=== PATIENT | female | born 1975 | race Caucasian/White ===

== ENCOUNTER 2021-09-08 16:31 | Emergency (ER) | payer OTHER, SELFPAY ==
[2021-09-08 16:37] VITALS: BP 140/93; PULSE 105; RESP 16; TEMP 37; O2SAT 97
--- NOTE | 2021-09-08 17:08 | ED.URI ---
HPI - URI/Sore Throat General Chief Complaint: Upper Respiratory Infection Stated Complaint: sore throat drainage Time Seen by Provider: 09/08/21 16:40 Source: patient Mode of arrival: ambulatory Limitations: no limitations History of Present Illness HPI Narrative: Ms. Bryant is a 46-year-old female patient presenting to the clinic today with complaints of sore throat, low-grade temp, headache, and nasal congestion with nasal drainage. She reports that this has been going on for 3 days. She has had positive exposure to strep MD elicited complaint: sore throat and nasal congestion Related Data Home Medications Medication Instructions Recorded Confirmed amitriptyline 50 mg tablet 50 mg PO HS 09/08/21 09/08/21 ergocalciferol (vitamin D2) 1,250 1,250 mcg PO WEEKLY 09/08/21 09/08/21 mcg (50,000 unit) capsule (Vitamin D2) escitalopram oxalate 20 mg tablet 20 mg PO DAILY 09/08/21 09/08/21 loratadine 10 mg tablet 10 mg PO DAILY 09/08/21 09/08/21 Allergies Allergy/AdvReac Type Severity Reaction Status Date / Time Penicillins Allergy Swelling Verified 09/08/21 16:53 of Lip/Tongue/Throat Review of Systems Review of Systems: Pertinent positives per HPI. Patient denies any, rash, visual changes, dizziness, cough, shortness of breath, chest pain, palpitations, nausea, vomiting, diarrhea, constipation, abdominal pain, or any urinary issues. PMFSH Comments At the time of my signature, I reviewed and agree with the nursing past medical, surgical, social, and family history. There is no relevant family history pertinent to the patient complaint. Exam Narrative: General: Well-developed, well nourished, in no apparent distress Head: Normocephalic, atraumatic Eyes: Pupils equally round and reactive to light bilaterally, EOM intact, sclera and conjunctive clear, no discharge, lids normal Ears: TMs intact and clear, ear canals clear, no drainage, grossly hearing normal. Nose: Nares patent, clear nasaldischarge, no inflammation, no sinus tenderness. Mouth: Oral pharynx without lesions or masses, good dentition, MMM. Oropharynx red with bilateral tonsillar exudate and swelling Neck: Supple, trachea midline, positive enlargement of anterior cervical nodes, no thyroid masses or goiter palpable. Cardio: Regular rate and rhythm, s1 and s2 normal, no murmur appreciated. Resp: Clear to auscultation bilaterally, no rhonchi, rales, wheezing or rubs Course Course Emergency Course: Portions of this record may have been created with voice recognition software. Level of Care: Express Care Visit Vital Signs Vital signs: Vital Signs Temperature 37.0 C 09/08/21 16:37 Pulse Rate 105 H 09/08/21 16:37 Respiratory Rate 16 09/08/21 16:37 Blood Pressure 140/93 H 09/08/21 16:37 Pulse Oximetry 97 09/08/21 16:37 Oxygen Delivery Room Air 09/08/21 16:37 Temperature 37.0 C 09/08/21 16:37 Pulse Rate 105 H 09/08/21 16:37 Respiratory Rate 16 09/08/21 16:37 Blood Pressure 140/93 H 09/08/21 16:37 Pulse Oximetry 97 09/08/21 16:37 Oxygen Delivery Room Air 09/08/21 16:37 Vital signs reviewed MDM - URI/Sore Throat MDM Narrative Medical decision making narrative: At the time of visit patient is resting comfortably on the exam table. Strep screen was obtained and was positive for strep. Supportive measures were discussed and I will place patient on prescription for azithromycin. Differential Diagnosis Differential diagnosis: Likely sinusitis, viral infection, influenza and pharyngitis Lab Data Labs: Strep Screen Positive Group A Strep *(Reference Range: Negative)* Discharge Plan Discharge Clinical Impression: Strep pharyngitis Patient Disposition: Home, Self-Care Condition: Stable Instructions: Antibiotic Form, Strep Throat (ED) Additional Instructions: Take prescription medications only as prescribed-azithromycin
== END 2021-09-08 17:35 | disposition home or self-care (01) ==
PROVIDERS: Emergency Provider Nurse Practitioner Family
DX: J02.0 Streptococcal pharyngitis (principal); F41.9 Anxiety disorder, unspecified
CPT/HCPCS: 87880; 99213; G0463